=== PATIENT | female | born 1975 | race American Indian/Alaskan Native ===

== ENCOUNTER 2016-04-29 03:22 | Emergency (ER) | payer OTHER ==
[2016-04-29 03:38] VITALS: BP 133/79
[2016-04-29] MEDS ORDERED: FLEXERIL PO ONE (04:20)
[2016-04-29] MEDS ORDERED: TORADOL IM ONE (04:20)
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
== END 2016-04-29 05:03 | disposition home or self-care (01) ==
LOC: ED 03:22
DX: S29.012A Strain of muscle and tendon of back wall of thorax, initial encounter (principal); S16.1XXA Strain of muscle, fascia and tendon at neck level, initial encounter; S39.012A Strain of muscle, fascia and tendon of lower back, initial encounter; F17.200 Nicotine dependence, unspecified, uncomplicated; V49.9XXA Car occupant (driver) (passenger) injured in unspecified traffic accident, initial encounter; Y93.89 Activity, other specified; Y99.9 Unspecified external cause status; Y92.410 Unspecified street and highway as the place of occurrence of the external cause
CPT/HCPCS: 96372; 99282; J1885